=== PATIENT | female | born 1995 | race Caucasian/White ===

== ENCOUNTER 2017-02-26 10:41 | Emergency (ER) | payer SELFPAY ==
[2017-02-26 10:55] VITALS: BP 110/69
--- NOTE | 2017-02-26 10:58 | Emergency Department Report ---
Chief Complaint: Skin Rash Stated Complaint: RASH SPREADING STOMACH AREA Time Seen by Provider: 02/26/17 10:55 - HPI History of Present Illness: rash to abd x 3 + vaginal discharge - ROS Review of Systems: lmp 7 pt concerned for STD due to vaginal dc - Exam Vital Signs: Vital Signs 02/26/17 10:51 Temperature 98.3 F Pulse Rate 89 Respiratory 20 Rate Blood Pressure 110/69 O2 Sat by Pulse 99 Oximetry Physical Exam: rash to lower abd MSE screening note: Focused history and physical exam performed. Due to findings the following was ordered: labs ED Disposition for MSE Condition: Stable
[2017-02-26] MEDS ORDERED: DECADRON IM ONE (12:19)
[2017-02-26] MEDS ORDERED: BENADRYL PO ONE (12:19)
[2017-02-26] MEDS ORDERED: PEPCID PO ONE (12:19)
--- NOTE | 2017-02-26 12:22 | Emergency Department Report ---
ED Rash HPI - HPI Chief Complaint: Skin Rash Stated Complaint: RASH SPREADING STOMACH AREA Time Seen by Provider: 02/26/17 10:55 Duration: 2 weeks Location: Abdomen, Other (generalized) Suspected Cause: Other (soap) Rash Symptoms: Yes Itching, Yes Peeling, No Facial Swelling, No Tongue/Oral Swelling, No Breathing Difficulties, No Choking Sensation, No Wheezing/Dyspnea, No Blistering, No Fever, No Lightheaded, No Malaise, No Myalgias Severity: mild Other History: 21 year old female presents to ED with pruritic rash present on torso x2 weeks. patient states she used new soap recently. patient is stable, neurologically intact and in no acute distress. patient denies diff breathing, facial swelling, diff swallowing, wheezing. ED Review of Systems ROS: Stated complaint: RASH SPREADING STOMACH AREA Other details as noted in HPI Constitutional: denies: chills, fever Eyes: denies: eye pain, eye discharge, vision change ENT: denies: ear pain, throat pain Respiratory: denies: cough, shortness of breath, wheezing Cardiovascular: denies: chest pain, palpitations Endocrine: no symptoms reported Gastrointestinal: denies: abdominal pain, nausea, diarrhea Genitourinary: denies: urgency, dysuria, discharge Musculoskeletal: denies: back pain, joint swelling, arthralgia Skin: rash, pruritus. denies: lesions Neurological: denies: headache, weakness, paresthesias Psychiatric: denies: anxiety, depression Hematological/Lymphatic: denies: easy bleeding, easy bruising ED Past Medical Hx - Past Medical History Previous Medical History?: No - Surgical History Past Surgical History?: No - Social History Smoking Status: Current Every Day Smoker Substance Use Type: Alcohol, Cocaine, Marijuana - Medications Home Medications: Home Medications Medication Instructions Recorded Confirmed Last Taken Type Hydroxyzine HCl 25 mg PO BID #14 tablet 02/26/17 Unknown Rx Triamcinolone 0.1% [Kenalog 0.1% 1 applic TP TID #1 tube 02/26/17 Unknown Rx CREAM] Rash Exam - Exam General: Vital signs noted. No distress. Alert and acting appropriately. HEENT: No Periorbital Edema, No Conjuctival Injection, No Chemosis, No Perioral Edema, No Tongue Edema, No Uvular Edema, No Compromised Airway, No Drooling Lungs: Yes Good Air Exchange (Normal Breath Sounds), No Wheezes, No Ronchi, No Stridor, No Cough, No Labored Respirations, No Retractions, No Use of Accessory Muscles, No Other Abnormal Lung Sounds Heart: Yes Regular, No Murmur Skin: Yes Urticarial Rash, Yes Maculopapular Rash (abdomen, back), No Morbilliform rash, No Bulla(e), No Excoriations, No Weeping, No Tenderness, No Erythema, No Edema, No Encrustations Other: Positive: Abdomen Normal, Neurologic Normal, Musculoskeletal Normal ED Course Vital Signs 02/26/17 10:51 Temperature 98.3 F Pulse Rate 89 Respiratory 20 Rate Blood Pressure 110/69 O2 Sat by Pulse 99 Oximetry ED Medical Decision Making - Lab Data Labs 02/26/17 11:02 HCG, Qual Negative - Medical Decision Making 21 year old female presents to ED with generalized rash present over torso and spreading bilaterally. patient states she used new soap recently. patient has been medicated with steroids, benadryl and famotidine during ED visit. patient has neg preg test. patient will be given RX for oral antihistamines and topical steroids. patient is stable, neurologically intact and in no acute distress. Critical care attestation.: If time is entered above; I have spent that time in minutes in the direct care of this critically ill patient, excluding procedure time. ED Disposition Clinical Impression: Pruritic rash Contact dermatitis Qualifiers: Contact dermatitis type: allergic Contact dermatitis trigger: cosmetics Qualified Code(s): L23.2 - Allergic contact dermatitis due to cosmetics Disposition: DC-01 TO HOME OR SELFCARE Is pt being admited?: No Does the pt Need Aspirin: No Condition: Stable Instructions: Contact Dermatitis (ED) Prescriptions: Hydroxyzine HCl 25 mg PO BID #14 tablet Triamcinolone 0.1% [Kenalog 0.1% CREAM] 1 applic TP TID #1 tube Referrals: PRIMARY CARE,MD [Primary Care Provider] - 3-5 Days
== END 2017-02-26 13:50 | disposition home or self-care (01) ==
LOC: ED 10:41
DX: L23.2 Allergic contact dermatitis due to cosmetics (principal); R21 Rash and other nonspecific skin eruption; F17.200 Nicotine dependence, unspecified, uncomplicated; F12.10 Cannabis abuse, uncomplicated; F14.10 Cocaine abuse, uncomplicated
CPT/HCPCS: 36415; 84703; 96372; 99283; J1100

== ENCOUNTER 2020-08-28 17:12 | Emergency (ER) | payer SELFPAY ==
[2020-08-28 17:34] VITALS: BP 124/74
--- NOTE | 2020-08-28 17:54 | Emergency Department Report ---
Chief Complaint: Urogenital-Female Stated Complaint: STD Time Seen by Provider: 08/28/20 17:36 - HPI History of Present Illness: 25 yr old female presents to ED c/o "sticking" sensation intermittently through out her body and she is concern she may have STD. She reports mild vaginal itching and she "thinks" she has vag discharge. She admits to 3 different sexual partners in past 3-4 weeks, 2 of which have been unprotected. She reports no abdominal pain/pelvic pain, lower back pain, nausea, vomiting abnormal vaginal bleeding or any other symptoms at this time. Last MC was 08/05/20. - ROS Review of Systems: + vag d/c +"sticking sensation in her body" +vag itching - Exam Vital Signs: Vital Signs 08/28/20 08/28/20 17:27 17:29 Temperature 98.3 F 98.3 F Pulse Rate 74 75 Respiratory 16 16 Rate Blood Pressure 124/74 124/74 O2 Sat by Pulse 100 100 Oximetry MSE screening note: Focused history and physical exam performed. Due to findings the following was ordered:Nothing ED Medical Decision Making - Medical Decision Making 25 yr old female presents to ED c/o "sticking" sensation intermittently through out her body and she is concern she may have STD. She reports vaginal itching and thinks she has vag discharge. She admits to 3 different sexual partners in past 3-4 weeks, 2 of which have been unprotected. She reports no abdominal pain/pelvic pain, lower back pain, nausea, vomiting abnormal vaginal bleeding or any other symptoms at this time. Last MC was 08/05/20. Based on history, physical exam and patient current condition, patient does not have a emergent medical condition at this time. She is well-appearing, not toxic and is not in any acute distress. Her vital signs are stable. She is neurologically intact with a normal gait in the ER. She has a soft nontender abdomen. Patient given referral to outpatient clinics for STD testing. Patient was stable at time of discharge. ED Disposition for MSE Clinical Impression: Prickling sensation, Encounter for medical screening examination Disposition: MED SCREENING EXAM-LEFT Is pt being admited?: No Does the pt Need Aspirin: No Condition: Stable Referrals: PRIMARY [facility]ARE, [Primary Care Provider] - 3-5 Days Forms: Work/School Release Form(ED) ED Physical Exam - General Limitations: No Limitations General appearance: alert, in no apparent distress - Respiratory Respiratory exam: Present: normal lung sounds bilaterally. Absent: respiratory distress - Cardiovascular Cardiovascular Exam: Present: regular rate, normal rhythm, normal heart sounds - GI/Abdominal GI/Abdominal exam: Present: soft. Absent: tenderness, guarding - Neurological Exam Neurological exam: Present: alert, oriented X3, CN II-XII intact, normal gait - Psychiatric Psychiatric exam: Present: normal affect, normal mood - Skin Skin exam: Present: intact
== END 2020-08-28 19:00 | disposition left against medical advice (07) ==
LOC: ED 17:12
DX: A64 Unspecified sexually transmitted disease (principal); Z53.21 Procedure and treatment not carried out due to patient leaving prior to being seen by health care provider